=== PATIENT | male | born 1985 | race Caucasian/White ===

== ENCOUNTER 2021-06-24 13:34 | Emergency (ER) | payer OTHER ==
[2021-06-24] MEDS ORDERED: NYSTOP TOPICAL30 GM TOP (17:46)
[2021-06-24] MEDS ORDERED: DIFLUCAN150 M1 PO (17:46)
[2021-06-24] MEDS ORDERED: VISTARIL25 MG PO (17:46)
== END 2021-06-24 18:14 | disposition home or self-care (01) ==
LOC: FER 13:34
DX: B35.6 Tinea cruris (principal); Z88.2 Allergy status to sulfonamides
CPT/HCPCS: 99282